=== PATIENT | female | born 1955 | race American Indian/Alaskan Native ===

== ENCOUNTER 2016-12-07 19:15 | Emergency (ER) | payer OTHER ==
[2016-12-07 20:15] LABS: Basophils % (Auto) 0.3 % (0.0-1.8); Eosinophils % (Auto) 0.2 % (0.0-4.3); Hematocrit 36.3 % (30.3-42.9); Hemoglobin 11.4 gm/dl (10.1-14.3); Mean Corpuscular HGB Conc 31 % (30-34); Mean Corpuscular Volume 79 fl (79-97); Platelet Count 566 K/mm3 (140-440); Red Cell Distribution Width 17.4 % (13.2-15.2); White Blood Count 9.4 K/mm3 (4.5-11.0)
[2016-12-07 20:32] LABS: Anion Gap 19 mmol/L; BUN/Creatinine Ratio 24.28; Blood Urea Nitrogen 17 mg/dL (7-17); Calcium 9.5 mg/dL (8.4-10.2); Carbon Dioxide 27 mmol/L (22-30); Chloride 95.1 mmol/L (98-107); Glucose 370 mg/dL (65-100); Sodium 136 mmol/L (137-145)
[2016-12-07 20:37] LABS: Mean Corpuscular Hemoglobin 25 pg (28-32)
[2016-12-07 21:47] LABS: Bilirubin,Urine NEG (Negative); Blood,Urine NEG (Negative); Ketones,Urine NEG (Negative); Leukocyte Esterase,Urine NEG (Negative); Mucus,Urine FEW /HPF; Nitrite,Urine NEG (Negative); Protein,Urine <15 mg/dL mg/dL (Negative); Urobilinogen,Urine < 2.0 mg/dL (<2.0)
--- NOTE | 2016-12-08 01:40 | Emergency Department Report ---
HPI - General Chief Complaint: Hyperglycemia Time Seen by Provider: 12/07/16 23:35 - HPI HPI: This is a 60-year-old female presents the emergency department with a complaint of elevated blood sugar. The patient recently saw her primary care doctor at a urgent care and says she was started on prednisone for an upper respiratory infection. Since that time she has been having trouble controlling her blood sugar and is seen at rising into the upper 300s. She is on metformin 1000 mg twice a day and used to be on Amaryl with it but was recently started on Triseba at 15 units qhs. She denies any chest pain, shortness of breath, fever, abdominal pain, nausea, vomiting. However the patient says that with the elevated blood sugar she "does not feel like myself." She also has a past medical history of hypertension, hypothyroidism. No recent travel or sick contacts at home. ED Past Medical Hx - Past Medical History Previous Medical History?: Yes Hx Hypertension: Yes Hx Diabetes: Yes Additional medical history: HYPOTHYROID / GLAUCOMA - Surgical History Past Surgical History?: No - Social History Smoking Status: Current Some Day Smoker Substance Use Type: None - Medications Home Medications: Home Medications Medication Instructions Recorded Confirmed Last Taken Type Dorzolamide HCl/Timolol Maleat 10 ml OP BID 12/08/16 12/08/16 12/07/16 History [Dorzolamide-Timolol Eye Drops] Dorzolamide/Timolol/Pf [Cosopt Pf 1 each OP BID 12/08/16 12/08/16 12/07/16 History Eye Drops] Furosemide [Lasix] 20 mg PO QDAY 12/08/16 12/08/16 12/07/16 History Glimepiride [Amaryl] 4 mg PO DAILY 12/08/16 12/08/16 12/07/16 History Levothyroxine [Synthroid] 125 mcg PO QAM 12/08/16 12/08/16 12/07/16 History Metformin HCl [Glucophage] 1,000 mg PO BID 12/08/16 12/08/16 12/07/16 History Nebivolol HCl [Bystolic] 20 mg PO DAILY 12/08/16 12/08/16 12/07/16 History amLODIPine [Norvasc] 10 mg PO DAILY 12/08/16 12/08/16 12/07/16 History ED Review of Systems ROS: Stated complaint: BLOOD SUGAR CHECK Other details as noted in HPI Comment: All other systems reviewed and negative Constitutional: denies: chills, fever Eyes: denies: eye pain, eye discharge, vision change ENT: denies: ear pain, throat pain Respiratory: denies: cough, shortness of breath, wheezing Cardiovascular: denies: chest pain, palpitations Gastrointestinal: denies: abdominal pain, nausea, diarrhea Genitourinary: denies: urgency, dysuria, discharge Musculoskeletal: denies: back pain, joint swelling, arthralgia Skin: denies: rash, lesions Neurological: denies: headache, weakness, paresthesias Physical Exam - Physical Exam Vital Signs: Vital Signs 12/07/16 12/08/16 19:29 00:26 Temperature 98.4 F Pulse Rate 66 61 Respiratory 20 16 Rate Blood Pressure 158/85 Blood Pressure 148/68 [Left] O2 Sat by Pulse 99 97 Oximetry Physical Exam: GENERAL: The patient is well-developed well-nourished. HEENT: Normocephalic. Atraumatic. Extraocular motions are intact. Patient has moist mucous membranes. Pupils equal reactive to light bilaterally. NECK: Supple. Trachea is midline CHEST/LUNGS: Clear to auscultation. There is no respiratory distress noted. HEART/CARDIOVASCULAR: Regular. There is no tachycardia. There is no gallop rub or murmur. ABDOMEN: Abdomen is soft, nontender. Patient has normal bowel sounds. There is no abdominal distention. SKIN: Skin is warm and dry. NEURO: The patient is awake, alert, and oriented. The patient is cooperative. The patient has no focal neurologic deficits. The patient has normal speech. Cranial nerves II through XII grossly intact. MUSCULOSKELETAL: There is no tenderness or deformity. There is no limitation range of motion. There is no evidence of acute injury. ED Course Vital Signs 12/07/16 12/08/16 19:29 00:26 Temperature 98.4 F Pulse Rate 66 61 Respiratory 20 16 Rate Blood Pressure 158/85 Blood Pressure 148/68 [Left] O2 Sat by Pulse 99 97 Oximetry ED Medical Decision Making - Lab Data Result diagrams: 12/07/16 19:46 12/07/16 19:46 - Medical Decision Making This is a 60-year-old female presents emergency Department with complaint of uncontrolled blood sugar. It appears consistent with her recent prescription for prednisone which is known to cause hyperglycemia in diabetics. There is no significant elevation and her anion gap and there is no venous acidosis and she is low suspicion for diabetic ketoacidosis or HHNK. The rest of the patient's labs are unremarkable. Attempted to better control the blood sugar using only subcutaneous insulin. She did not receive any IV insulin or IV fluid resuscitation but also does not appear to be clinically dehydrated. The blood sugar came down from 313 on Accu-Chek to about 290 over 1 hour. The half-life should be continuing to work for the next hour or so. Patient was reevaluated and she says she is feeling improved. Instead of placing an IV at this time and giving IV fluid and IV insulin, the patient will go home and take her nighttime metformin dose and go to bed. Since the patient is not eating anything further this evening her blood sugar should be more reasonable when she wakes up. She will recheck it at home and upon waking. She is not going to take any further steroids and she has been encouraged to follow-up with her primary care doctor in the next few days. She will return to the ER with any worsening of her symptoms or any acute distress. - Differential Diagnosis DKA, HHNK, URI Critical Care Time: No Critical care attestation.: If time is entered above; I have spent that time in minutes in the direct care of this critically ill patient, excluding procedure time. ED Disposition Clinical Impression: Hyperglycemia Disposition: DC-01 TO HOME OR SELFCARE Is pt being admited?: No Condition: Stable Instructions: Diabetic Hyperglycemia (ED) Additional Instructions: Please follow-up with your primary care doctor in the next few days. Continue with your diabetes regiment. Stay away from any further steroids use for your upper respiratory infection. Try to stay away from foods that are high in carbohydrates, sugar and starches. Keep a blood pressure log. Return to the emergency department with any worsening of her symptoms or any acute distress. Referrals: PRIMARY CARE, [Primary Care Provider] - [facility] Time of Disposition: 01:41
[2016-12-08 01:48] VITALS: BP 148/65
== END 2016-12-08 02:00 | disposition home or self-care (01) ==
LOC: ED 19:15
DX: E11.65 Type 2 diabetes mellitus with hyperglycemia (principal); I10 Essential (primary) hypertension; F17.200 Nicotine dependence, unspecified, uncomplicated; E03.9 Hypothyroidism, unspecified; Z91.048 Other nonmedicinal substance allergy status
CPT/HCPCS: 36415; 80048; 81001; 82805; 82962; 85025; 96372; J1815

== ENCOUNTER 2018-08-13 01:56 | Emergency (ER) | payer OTHER | END 2018-08-13 04:12 | disposition left against medical advice (07) | LOC: ED 01:56 ==